=== PATIENT | female | born 1980 | race Caucasian/White ===

== ENCOUNTER 2021-11-07 14:19 | Emergency (ER) | payer MEDICAID, SELFPAY ==
[2021-11-07 14:42] VITALS: BP 134/82; PULSE 87; RESP 16; TEMP 37; O2SAT 100
[2021-11-07 14:43] VITALS: BP 134/82; PULSE 84
[2021-11-07] MEDS: SUMAtriptan 6 MG/0.5 ML VIAL SC (15:03)
--- NOTE | 2021-11-07 15:12 | W.ED.GENAD ---
Discharge Plan Disposition Patient Disposition: HOME Condition: Improving Discharge Details Clinical Impression: Headache Primary Care Provider: Dipika Collins ED Provider: Katina Jefferson Home Meds and New Rx's Prescriptions: New sumatriptan succinate 6 mg/0.5 mL syringe 6 mg subcut Q1-4H MDD 12mg PRN (Reason: migraine headache) Qty: 1 1RF Rx Instructions: do not exceed 2 doses in a 24 hour period ondansetron 4 mg tablet,disintegrating 4 mg PO Q8H PRN (Reason: nausea and vomiting) 5 Days Qty: 15 0RF No Action dextroamphetamine 10 mg tablet 30 mg PO DAILY 0RF Label Comments: TAKE 2 TABLETS A, AMD 1 TABLET IN THE AFTERNOON esomeprazole magnesium 40 mg capsule,delayed release(DR/EC) 0RF Label Comments: TAKE 1 CAPSULE BY MOUTH EVERY DAY fluoxetine 20 mg capsule 20 mg PO DAILY 0RF Label Comments: TAKE 1 CAPSULE BY MOUTH EVERY DAY Discharge Instructions Instructions: Migraine Headache (ED) Additional Instructions: At this time work-up appears to show no acute abnormality. It appears you are having a complex migraine. Please take the medications as prescribed if needed. Follow up with primary care provider in 3-5 days. Return to ED sooner if any worsening headache not relieved by medications, altered mental status, seizure-like activity, nausea vomiting, fever or concerns. Increase oral fluids. Please take Tylenol or Ibuprofen with food every 4-6 hours as needed for pain and swelling. Referrals: Dipika Collins [Primary Care Provider] - 3 days Discharge Data Discharge Date/Time-TO BE ENTERED AT DEPARTURE: 11/07/21 18:17 Medical Decision Making <EVA Willett - Last Filed: 11/08/21 22:51> Patient appears well She is given a dose of subcutaneous Imitrex and migraine cocktail including Benadryl, Compazine, face, Toradol Her headache is typical she reports and we will treated conservatively No indication for head CT imaging at this time At approximately 1530, patient started having rhythmic motion noted to her right upper extremity with restlessness He states that she has had this before with her past migraine headache and with Benadryl administration Patient subsequently had generalized tremulousness but no obvious seizure activity was noted on exam At time of my reassessment, she was presenting home postictal or dystonic, suspect this is probably medication related he does Compazine or Benadryl as patient has no known seizure history and she confirms that she has similar symptoms of past migraines, however I think she warrants CT imaging and diagnostic blood work at this time We will also order EKG Fingerstick blood glucose 68, given glucose gel, tolerated this Patient care will be transitioned to oncoming provider at 1600 Medical Records Medical records reviewed: Yes I reviewed the patient's medical records. <Katina Jefferson - Last Filed: 11/07/21 21:21> Patient appears well She is given a dose of subcutaneous Imitrex and migraine cocktail including Benadryl, Compazine, face, Toradol Her headache is typical she reports and we will treated conservatively No indication for head CT imaging at this time At approximately 1530, patient started having rhythmic motion noted to her right upper extremity with restlessness He states that she has had this before with her past migraine headache and with Benadryl administration Patient subsequently had generalized tremulousness but no obvious seizure activity was noted on exam At time of my reassessment, she was presenting home postictal or dystonic, suspect this is probably medication related he does Compazine or Benadryl as patient has no known seizure history and she confirms that she has similar symptoms of past migraines, however I think she warrants CT imaging and diagnostic blood work at this time We will also order EKG Fingerstick blood glucose 68, given glucose gel, tolerated this Patient care will be transitioned to oncoming provider at 1600 1635: SJ: Care assumed from provider (EVA Willett Please see their initial HPI, PE, and documentation. Discussed patient details and case and pending workup and disposition. Patient is hemodynamically stable, and sleepy. Upon my initial examination patient is returned from CT, she is sleepy awakens easily to verbal. Patient states that she is doing okay no shaking, tremors or restlessness noted by myself. Vitals are stable. She does appear to fall easily back to sleep. At this time we are waiting for CT results. 1710: CBC shows no leukocytosis, CMP largely within normal limits with a calcium of 8.4, anion gap 12.3, urine drug screen is positive for amphetamines however patient does take dextro amphetamine on a regular basis. Is negative for all other drugs. [facility] Head CT Report: COMPARISON: No relevant prior studies available. FINDINGS: Brain: No evidence for acute transcortical infarct. No mass effect or midline shift. No extra-axial collection. No acute intracranial hemorrhage. Basal cisterns are patent. Cerebral ventricles: No ventriculomegaly. Paranasal sinuses: Visualized sinuses are unremarkable. No fluid levels. Mastoid air cells: Visualized mastoid air cells are well aerated. Bones/joints: Unremarkable. No acute fracture. Soft tissues: Unremarkable. IMPRESSION: No evidence for acute transcortical infarct, hydrocephalus, acute intracranial hemorrhage, or mass effect. 1749: Patient reevaluation, patient states that she feels much better awakens easily. I did discuss her negative CT results with her. She reports she feels well enough to go home. She is alert and oriented no focal neuro deficits noted. She is asking to have her IV taken out. She reports she does not have any migraine medication at home nor nausea medication and is requesting some Imitrex. Patient discharged in hemodynamically stable condition. I did discuss strict return instructions and follow-up care she verbalizes understanding. This text was generated using [employer] system, please disregard any oddities of phrase or misspellings. HPI <EVA Willett - Last Filed: 11/08/21 22:51> General Date/Time Provider Initiated Documentation: 11/07/21 14:47. HPI Narrative: This 41-year-old female with history of migraine headaches presents with report of migraine headache that started after tobacco smoke exposure just prior to arrival. She states that this is a typical headache for her. She states like a band around her head. She denies worst headache of life. She denies any head injury carbon monoxide exposure. She has nauseous without vomiting. She denies any stiff neck or fever. She denies any chance of . She typically takes Imitrex but did not have her rescue medication. She denies any additional, time. She has any vision change. She is characteristically photophobic and phonophobic associated with this. Related Data Home Medications Medication Instructions Recorded Confirmed dextroamphetamine 10 mg tablet 30 mg PO DAILY 11/07/21 11/07/21 esomeprazole magnesium 40 mg mg 11/07/21 11/07/21 capsule,delayed release fluoxetine 20 mg capsule 20 mg PO DAILY 11/07/21 11/07/21 ondansetron 4 mg disintegrating 4 mg PO Q8H PRN 5 Days #15 tab 11/07/21 tablet sumatriptan succinate 6 mg/0.5 mL 6 mg (0.5 mL) SUBCUT Q1-4H PRN #1 11/07/21 subcutaneous syringe ml MDD 12mg Previous Rx's Medication Instructions Recorded ondansetron 4 mg disintegrating 4 mg PO Q8H PRN 5 Days #15 tab 11/07/21 tablet sumatriptan succinate 6 mg/0.5 mL 6 mg (0.5 mL) SUBCUT Q1-4H PRN #1 11/07/21 subcutaneous syringe ml MDD 12mg Allergies Allergy/AdvReac Type Severity Reaction Status Date / Time amoxicillin Allergy Unverified 11/07/21 14:46 gabapentin Allergy Unverified 11/07/21 14:46 General Stated Complaint: Headache TRANG: 3 Review of Systems <EVA Willett - Last Filed: 11/08/21 22:51> All systems reviewed & are unremarkable except as noted in HPI and below PFSH <EVA Willett - Last Filed: 11/08/21 22:51> All Active Problems (Updated 11/07/21 @ 17:55 by Katina Jefferson) Headache (Acute) Social History Smoking/Tobacco Use Status: Never Smoking risk assessment performed?: Yes Alcohol Intake: never Substance use type: does not use Exam <EVA Willett Last Filed: 11/08/21 22:51> Const General: cooperative, comfortable and no acute distress HENMT Head: normal to inspection Mouth: oral mucosae normal Eyes Pupils: PERRL Neck Other: neg carotid bruit Chest Chest: normal inspection of the chest Resp Effort & Inspection: normal respiratory effort Cardio Rate: regular rate Rhythm: regular rhythm GI Inspection: normal to inspection Skin General skin exam: no rashes or lesions noted Neuro General: patient alert and patient oriented x3 Cranial Nerves: CN's II-XI intact bilaterally Speech: speech normal Gait: normal gait Motor: strength 5/5 throughout Extrem Other: Distal pulses intact Course <EVA Willett Last Filed: 11/08/21 22:51> Vital Signs Vital signs: Vital Signs Temperature 37 C 11/07/21 14:42 Pulse 87 11/07/21 14:42 Respiratory Rate 16 11/07/21 14:42 Blood Pressure 134/82 11/07/21 14:42 Pulse Oximetry 100 11/07/21 14:42 Temperature 37 C 11/07/21 14:42 Temperature Source Skin 11/07/21 14:42 Pulse 87 11/07/21 14:42 Respiratory Rate 16 11/07/21 14:42 Respiratory Effort 11/07/21 14:42 Blood Pressure 134/82 11/07/21 14:42 Blood Pressure Position Sitting 11/07/21 14:42 Pulse Oximetry 100 11/07/21 14:42 Oxygen Delivery Method Room Air 11/07/21 14:42 Oxygen Flow Rate 0 11/07/21 14:42 Pain Level 7 11/07/21 14:42 Sign Out <EVA Willett - Last Filed: 11/08/21 22:51> Sign Out Data: Sign Out Comment: Signed out pending CT head, diagnostic lab, reassessment Last updated by Avril Brewster PA at 11/07/21 16:22
[2021-11-07] MEDS: Ketorolac 15 MG/ML VIAL IVP (15:19)
[2021-11-07] MEDS: Prochlorperazine 10 MG/2 ML VIAL IVP (15:25)
[2021-11-07] MEDS: diphenhydrAMINE 50 MG/ML VIAL 25 MG IVP (15:31)
[2021-11-07] MEDS: Normal Saline 500 ML 1000 ML IV (15:32)
[2021-11-07] MEDS: LORazepam 2 MG/ML VIAL (15:44)
[2021-11-07 15:45] VITALS: BP 126/74; PULSE 99; O2SAT 100
--- NOTE | 2021-11-07 15:45 | RT.EKG_ITS ---
APPROVED REPORT Exam: Resting ECG Reason for Exam: [facility] Patient Location: E HR:96 bpm ECG Measurements Heart Rate 96 AXIS CA 131 P 74 QRSd 80 QRS 78 QT 367 T 12 QTc 465 Conclusion Sinus rhythm...normal P axis, V-rate 60- 99 sinus rhythm, normal axis, non ischemic
--- NOTE | 2021-11-07 15:45 | DI.CT_ITS ---
Exam(s) CT HEAD WO EXAM: CT HEAD WO CLINICAL HISTORY: ams. TECHNIQUE: Imaging Protocol: Axial computed tomography images with coronal and sagittal reformatted images were created and reviewed COMPARISON: No exams were available for comparison FINDINGS: The ventricular system is normal in appearance. No evidence of acute intracranial hemorrhage, mass effect, or midline shift. The orbital structures are unremarkable. The temporal bone structures appear intact. Calvarium: Normal. Visualized Paranasal sinuses/Mastoids: Clear. IMPRESSION: Normal cranial CT. RADIATION DOSE DELIVERED: 699.14mGy.cm Total DLP 699.14mGy.cm Total DLP !Error CTDIvol DATA REPOSITORY: All CT scans at this facility are submitted to the National Radiology Data Registry (NRDR) Dose Index Registry (DIR) with the [employer] ([employer]). RADIATION OPTIMIZATION: All CT scans at this facility use at least one of these dose optimization te chniques: automated exposure control; mA and/or kV adjustment per patient size (includes targeted exa ms where dose is matched to clinical indication); or iterative reconstruction.
[2021-11-07 16:00] VITALS: BP 111/55; PULSE 101
[2021-11-07 16:14] LABS: Abs Immature Grans 0.03 10^3/uL (0.0-0.06); Absolute Basophil Count 0.04 10^3/uL (0.0-0.2); Absolute Eosinophil Count 0.06 10^3/uL (0.0-0.7); Absolute Lymphocyte Count 1.61 10^3/uL (1.2-3.4); Absolute Monocyte Count 0.77 10^3/uL (0.1-0.8); Basophils % 0.5; Eosinophils % 0.7; HCT 40.3 % (36.0-46.0); HGB 13.4 g/dL (11.2-15.7); Immature Grans % 0.3; Lymphocytes % 18.7; MCH 28.8 pg (27.0-33.0); MCHC 33.3 % (32.0-36.0); MCV 86.7 fL (80-95); Monocytes % 8.9; Neutrophils % 70.9; Nucleated RBC 0 %; Platelet Count 189 10^3/uL (130-400); RBC 4.65 10^6/uL (3.93-5.22); RDW 13.5 % (11.7-14.6); RDW-SD 42.5 fL; WBC 8.61 10^3/uL (4.4-10.8)
[2021-11-07 16:15] VITALS: BP 131/78; PULSE 100
[2021-11-07 16:30] VITALS: BP 115/63; PULSE 84; PULSE 87; RESP 14; O2SAT 99
[2021-11-07 16:30] LABS: ALT 19 U/L (14-59); AST 12 U/L (15-37); Alkaline Phosphatase 61 U/L (46-116); Anion Gap 12.3 mmol/L (3-11); BUN 12 mg/dL (7-18); Bilirubin, Total 0.9 mg/dL (0.2-1.0); CO2 21.7 mmol/L (21.0-32.0); CREATININE 0.6 mg/dL (0.55-1.02); Calcium 8.4 mg/dL (8.5-10.1); Chloride 104 mmol/L (98-107); Glucose 82 mg/dL (74-106); Magnesium 2.1 mg/dL (1.8-2.4); Potassium 3.6 mmol/L (3.5-5.1); Sodium 138 mmol/L (136-145); Total Protein 7.5 g/dL (6.4-8.2)
[2021-11-07 16:57] LABS: *AMPHETAMINES SCREEN URINE Positive (Negative); *BARBITURATES SCREEN URINE Negative (Negative); *BENZODIAZEPINES SCREEN URINE Negative (Negative); Cannabinoids THC Negative (Negative); Cocaine Screen,Urine Negative (Negative); METHADONE URINE SCREEN Negative (Negative); OPIATES URINE SCREEN Negative (Negative)
[2021-11-07 16:58] LABS: Tricyclic Antidepressants Negative (Negative)
--- NOTE | 2021-11-07 17:32 | DI.VRAD_ITS ---
PROCEDURE INFORMATION: Exam: CT Head Without Contrast Exam date and time: 11/07/2021 4:00 PM Age: 41 years old Clinical indication: Pain; Altered mental status/memory loss; Confusion or disorientation; Headache not specified; Additional info: Reason for exam AMS. PT states headache TECHNIQUE: Imaging protocol: Computed tomography of the head without contrast. Radiation optimization: All CT scans at this facility use at least one of these dose optimization techniques: automated exposure control; mA and/or kV adjustment per patient size (includes targeted exams where dose is matched to clinical indication); or iterative reconstruction. COMPARISON: No relevant prior studies available. FINDINGS: Brain: No evidence for acute transcortical infarct. No mass effect or midline shift. No extra-axial collection. No acute intracranial hemorrhage. Basal cisterns are patent. Cerebral ventricles: No ventriculomegaly. Paranasal sinuses: Visualized sinuses are unremarkable. No fluid levels. Mastoid air cells: Visualized mastoid air cells are well aerated. Bones/joints: Unremarkable. No acute fracture. Soft tissues: Unremarkable. IMPRESSION: No evidence for acute transcortical infarct, hydrocephalus, acute intracranial hemorrhage, or mass effect. Dictated and Authenticated by: Thomas Madrid MD. Ordering:AUBREY Mackenzie MD
== END 2021-11-07 18:17 | disposition home or self-care (01) ==
PROVIDERS: Physician Assistant; Emergency Provider Registered Nurse Emergency; PCP Family Medicine
DX: G43.909 Migraine, unspecified, not intractable, without status migrainosus (principal); R41.82 Altered mental status, unspecified
CPT/HCPCS: 36416; 80053; 80307; 81025; 82962; 93005; 96372; 96374; 96375; 99284; 70450; 83735; 85025; 93010; J0780; J1200; J1885; J2060